=== PATIENT | female | born 1975 | race Caucasian/White ===

== ENCOUNTER 2016-12-27 08:39 | Day surgery (SDC) | payer BC ==
[~2016-12-27 08:39] MED LIST: Lactated Ringers 1,000 ML IV SCH; Lidocaine 2% 5 ML SDV ONE; Midazolam 1 MG/ML 2 ML SDV ONE; Propofol 200 MG/20 ML SDV ONE; fentaNYL 100 MCG/2 ML SDV ONE
--- NOTE | 2016-12-27 09:47 | PCM.PREANE ---
Preanesthetic Assessment - Anesthesia/Transfusion/Family Hx Anesthesia History: Prior Anesthesia Without Reaction Family History of Anesthesia Reaction: No Transfusion History: No Prior Transfusion(s) Intubation History: Unknown - Review of Systems General: No Symptoms Pulmonary: No Symptoms Cardiovascular: No Symptoms Gastrointestinal: Abdominal pain Neurological: No Symptoms Other: Reports: None - Physical Assessment NPO Status Date: 12/27/16 NPO Status Time: 06:30 O2 Sat by Pulse Oximetry: 95 Respiratory Rate: 14 Vital Signs: Last Vital Signs Temp 36.7 C 12/27/16 08:55 Pulse 74 12/27/16 08:55 Resp 14 12/27/16 08:55 BP 142/90 H 12/27/16 08:55 Pulse Ox 95 12/27/16 08:55 Height: 1.63 m Weight: 105.233 kg ASA Class: 2 Mental Status: Alert & Oriented x3 Airway Class: Mallampati = 2 Dentition: Reports: Normal Dentition Thyro-Mental Finger Breadths: 3 Mouth Opening Finger Breadths: 3 ROM/Head Extension: Full Lungs: Clear to auscultation, Normal respiratory effort Cardiovascular: Regular Rate, Regular Rhythm - Allergies Allergies/Adverse Reactions: Allergies Allergy/AdvReac Type Severity Reaction Status Date / Time adhesive tape Allergy Redness Verified 12/22/16 16:28 - Blood Blood Available: No - Anesthesia Plan Pre-Op Medication Ordered: None - Acknowledgements Anesthesia Type Planned: MAC Pt an Appropriate Candidate for the Planned Anesthesia: Yes Alternatives and Risks of Anesthesia Discussed w Pt/Guardian: Yes Pt/Guardian Understands and Agrees with Anesthesia Plan: Yes PreAnesthesia Questionnaire Other HEENT History: wears glasses Cardiovascular History: Reports: None Respiratory History: Reports: None Gastrointestinal History: Reports: Chronic Constipation, Chronic Diarrhea, GERD , Irritable Bowel Syndrome Genitourinary History: Reports: None 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: 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 Musculoskeletal History: Reports: Arthritis (hands/knees) Neurological History: Reports: None Psychiatric History: Reports: Anxiety, Depression Endocrine/Metabolic History: Reports: Obesity/BMI 30+ Hematologic History: Reports: None Immunologic History: Reports: None Oncologic (Cancer) History: Reports: None Dermatologic History: Reports: None - Past Surgical History Head Surgeries/Procedures: Reports: None HEENT Surgical History: Reports: Tonsillectomy Cardiovascular Surgical History: Reports: None Respiratory Surgical History: Reports: None GI Surgical History: Reports: None Female Surgical History: Reports: Hysterectomy, Other (See Below) Other Female Surgeries/Procedures: bladder sling with mesh Endocrine Surgical History: Reports: None Neurological Surgical History: Reports: None Musculoskeletal Surgical History: Reports: Arthroscopic Knee, Other (See Below) Other Musculoskeletal Surgeries/Procedures:: bone spur removed from left heel Oncologic Surgical History: Reports: None Dermatological Surgical History: Reports: None - SUBSTANCE USE Smoking Status *Q: Current Every Day Smoker (1/2 ppd) Tobacco Use Within Last Twelve Months: Cigarettes Recreational Drug Use History: No - HOME MEDS Home Medications: Home Meds Citalopram Hydrobromide [Celexa] 20 mg PO DAILY 12/22/16 [History] Pantoprazole Sodium 40 mg PO DAILY 12/22/16 [History] - CURRENT (IN HOUSE) MEDS Current Meds: Current Medications Lactated Ringer's (Ringers, Lactated) 1,000 mls @ 125 mls/hr IV ASDIRECTED [place] Last Admin: 12/27/16 08:56 Dose: 125 mls/hr Discontinued Medications Fentanyl (Sublimaze) Confirm Administered Dose 100 mcg .ROUTE .STK-MED ONE Stop: 12/27/16 07:14 Lidocaine (Xylocaine-Mpf 2%) Confirm Administered Dose 5 ml .ROUTE .STK-MED ONE Stop: 12/27/16 07:14 Midazolam HCl (Versed 1 Mg/Ml) Confirm Administered Dose 2 mg .ROUTE .STK-MED ONE Stop: 12/27/16 07:14 Propofol (Diprivan 20 Ml) Confirm Administered Dose 400 mg .ROUTE .STK-MED ONE Stop: 12/27/16 07:14
[2016-12-27] MEDS ORDERED: Glycopyrrolate 0.2 MG/ML SDV ONE (10:08)
--- NOTE | 2016-12-27 10:36 | PCM.OPNOTE ---
- General Post-Op/Procedure Note Date of Surgery/Procedure: 12/27/16 Operative Procedure(s): egd w bx and colonoscopy w bx Findings: see dict [id number] Pre Op Diagnosis: abd pain and gerd Post-Op Diagnosis: Same Anesthesia Technique: Moderate sedation Primary Surgeon: Khang Fernandez Pathology: egd w bx and random colon bx Complications: None Condition: Good
--- NOTE | 2016-12-27 10:46 | PCM.POSTAN ---
POST ANESTHESIA ASSESSMENT - MENTAL STATUS Mental Status: alert, oriented - RESPIRATORY Respiratory Status: respiratory rate WNL, airway patent, O2 saturation stable - CARDIOVASCULAR CV Status: pulse rate WNL, blood pressure stable - GASTROINTESTINAL GI Status: no symptoms - POST OP HYDRATION Hydration Status: adequate & stable - OBSERVATIONS Free Text/Narrative:: no anesthesia problems
[2016-12-27 10:59] VITALS: BP 140/70
--- NOTE | 2016-12-27 14:22 | OR ---
SURGEON: Khang Fernandez MD DATE OF PROCEDURE: 12/27/2016 PREOPERATIVE DIAGNOSES: Abdominal pain and acid reflux. POSTOPERATIVE DIAGNOSES: 1. Esophagogastroduodenoscopy diagnosis is gastritis and acid reflux. 2. Colonoscopy diagnosis is internal hemorrhoids. PROCEDURE PERFORMED: 1. Esophagogastroduodenoscopy with biopsy. 2. Colonoscopy with biopsy. FINDINGS: EGD findings: 1. The patient is easily sedated with OFFICE ASSISTANT and Diprivan. The patient is soundly snoring. 2. The patient's oropharynx and proximal esophagus is free of disease, inflammation, stricture, none of those. GE junction at 40, shows mild salmon color change consistent with acid reflux, and stomach rugae is normal in appearance. There is bile in the stomach and no food or blood, and antrum is inflamed, but no rose mary ulcer. Duodenum was grossly normal in appearance and the scope retrieved back to the stomach. Retroflexed look at the fundus and stomach and there is no hiatal hernia or other etiology. Biopsy was done at antrum, body, GE junction at 40, and sucked out air while scope pulling out. Colonoscopy findings: 1. The patient is easily sedated with OFFICE ASSISTANT and Diprivan. The patient is soundly snoring. 2. Bowel prep is average with large amount of liquid stool. No semi-formed stool. Colon is rather straight forward. Cecum indicated by ileocecal fold, one-to-one indentation, appendix orifice, light immittance is not observed. Mucosa examined upon scope pulling out. The patient does not have diverticulosis, growth, polyp, AV malformation, inflammation, stricture, ulceration, bleeding, none of those. The patient has moderate internal hemorrhoids. No external hemorrhoids. Random biopsy was done for abdominal pain, and the patient would benefit from repeat colonoscopy 10 years from today, or if clinically indicated otherwise, or biopsy indicated otherwise. DESCRIPTION OF PROCEDURE: EGD: The patient was taken to the endoscopy room, and with the OFFICE ASSISTANT, Diprivan was administered. A well-lubricated EGD scope was gently inserted through the oropharynx, down the esophagus, passing through the gastroesophageal junction, into the stomach. The mucosa was examined upon the passage. Any etiology will be noted. Once in the stomach, we continued to advance to the distal antrum, passed through the pylorus into the second portion of the duodenum. Again, the mucosa was examined for any abnormality and etiology. The scope was then retrieved back to the stomach and then retroflexed to look at the fundus of the stomach. If a biopsy was indicated, we will biopsy the antrum, body, and gastroesophageal junction. The air will be sucked out while the scope is retrieved to reduce the patient's discomfort. The patient tolerated the procedure well. There were no intraoperative complications. Dr. Fernandez was present through the whole procedure. Prior to surgery, a time-out had been called, the patient identified, procedure identified and antibiotic administered. Colonoscopy: The patient was taken to the endoscopy room. A time out was called, patient identified, and procedure identified. Diprivan was then administrated. Patient went from awake to sleep, hearing doctor talking or door closing is normal. Perineum inspection and digital examination were then performed. A well-lubricated colonoscope was gently inserted through the rectum, advanced past the rectosigmoid junction, the descending colon, splenic flexure, transverse colon, hepatic flexure, ascending colon, arrived to the cecum. Cecum was identified as dictated in the finding. Then the scope was carefully withdrawn while attention was paid to the mucosal surface for any abnormality. Air will be sucked out during the scope withdrawal. At the rectum, retroflexed to examine any rectal diseases, fistula or hemorrhoids. During mucosal examination, and biopsy performed. Patient tolerated procedure well. There were no intraoperative complications, and Dr. Fernandez was present throughout the whole procedure. As always thank you for the kind referral. ISMA CAGLE /[id number] HALIE
== END 2016-12-27 11:20 | disposition home or self-care (01) ==
LOC: MW.SDS 08:39
PROVIDERS: ATTEND Surgery
DX: K31.89 Other diseases of stomach and duodenum (principal); F41.9 Anxiety disorder, unspecified; F32.9 Major depressive disorder, single episode, unspecified; Z91.09 Other allergy status, other than to drugs and biological substances; Z79.899 Other long term (current) drug therapy; Z90.710 Acquired absence of both cervix and uterus; Z98.890 Other specified postprocedural states; F17.210 Nicotine dependence, cigarettes, uncomplicated; Z78.9 Other specified health status
CPT/HCPCS: 43239; 45380; 88305; 88312; J2250; J3010; J7120; 00740; J2704